=== PATIENT | female | born 1935 | race Caucasian/White ===

== ENCOUNTER 2018-06-12 10:36 | Inpatient (IN) | payer MEDICARE, MEDICAID ==
[~2018-06-12] VITALS: Ht 160 cm; Wt 72.6 kg
[~2018-06-12 10:36] MED LIST: BENA20TA10 PO; DULO60CA44 PO; PREG50CA PO
[2018-06-12 11:37] LABS: BASOPHILS % 0.5 % (0.0-2.0); EOSINOPHILS % 2.8 % (0.0-5.0); HEMATOCRIT. 39.1 % (36.0-48.0); HEMOGLOBIN. 13.5 g/dL (12.0-16.0); LYMPHOCYTES % 24.8 % (20.0-50.0); MEAN CORPUSCULAR HEMOGLOBIN 29.2 pg (28.0-32.0); MEAN CORPUSCULAR VOLUME 84.3 fL (81.0-99.0); MEAN PLATELET VOLUME 7.6 fl (7.4-10.4); MONOCYTES % 7.1 % (2.0-8.0); NEUTROPHILS % 64.8 % (40.0-76.0); PLATELET 379 x1000/uL (130-400); RED BLOOD CELL COUNT 4.64 mill/uL (4.2-5.4); RED CELL DISTRIBUTION WIDTH 13.8 % (11.6-14.6)
[2018-06-12 11:40] LABS: CHLORIDE 96 mEq/L (98-107)
[2018-06-12 11:41] LABS: INR 1.1; PARTIAL THROMBOPLASTIN TIME 34.1 sec (23.4-31.0)
[2018-06-12 11:44] LABS: ETHANOL BLOOD < 10 mg/dL
[2018-06-12] MEDS ORDERED: TRAM50TA3 MT (17:14)
[2018-06-12] MEDS ORDERED: NITR50CA MT (17:14)
[2018-06-12] MEDS ORDERED: APIX5TAB PO (17:14)
[2018-06-12] MEDS ORDERED: LISI40TA4 MT (17:16)
[2018-06-12] MEDS ORDERED: METO25TA6 MT (17:16)
[2018-06-12] MEDS ORDERED: ATOR40TA70 MT (17:17)
[2018-06-12 17:30] VITALS: BP 162/60
[2018-06-12 18:05] VITALS: BP 162/60
[2018-06-12] MEDS: TRAMADOL 50MG TABLET PO PRN (19:01)
[2018-06-12] MEDS: ATORVASTATIN CALCIUM 40MG TABLET PO SCH (20:49)
[2018-06-12] MEDS: APIXABAN 5 MG TABLET PO SCH (20:50)
[2018-06-12] MEDS: ZOLPIDEM TARTRATE 5MG TABLET PO PRN (20:50)
[2018-06-12] MEDS: METOPROLOL TARTRATE 25MG TABLET PO SCH (20:52)
[2018-06-12 22:34] LABS: CREATINE KINASE 33 IU/L (26-192)
[2018-06-12 22:35] LABS: CREATINE KINASE MB FRACTION 1.1 ng/mL (0.5-3.6)
[2018-06-13] VITALS: BP 132/64
[2018-06-13 04:00] VITALS: BP 128/59
[2018-06-13 08:00] VITALS: BP 141/46
[2018-06-13 08:14] LABS: CREATINE KINASE 36 IU/L (26-192)
[2018-06-13 08:15] LABS: CREATINE KINASE MB FRACTION < 1.0 ng/mL (0.5-3.6)
[2018-06-13] MEDS ORDERED: DULOXETINE HCL 60MG DR CAPSULE PO SCH (09:00)
[2018-06-13] MEDS: APIXABAN 5 MG TABLET PO SCH ×2 (09:05→20:55)
[2018-06-13] MEDS: TRAMADOL 50MG TABLET PO PRN (09:13)
[2018-06-13] MEDS: METOPROLOL TARTRATE 25MG TABLET PO SCH ×2 (09:14→20:55)
[2018-06-13] MEDS: LISINOPRIL 40MG TABLET PO SCH (09:14)
[2018-06-13] MEDS: POLYETHYLENE GLYCOL 3350 (17GM) 1 DOSE PACK PO SCH (11:11)
[2018-06-13 12:00] VITALS: BP 129/45
[2018-06-13] MEDS: CALCIUM CARBONATE 500MG TABLET CHEW PO SCH ×3 (13:31→20:58)
[2018-06-13 16:00] VITALS: BP 130/41
[2018-06-13 20:00] VITALS: BP 154/52
[2018-06-13] MEDS: ATORVASTATIN CALCIUM 40MG TABLET PO SCH (20:55)
[2018-06-13] MEDS: ZOLPIDEM TARTRATE 5MG TABLET PO PRN (20:55)
[2018-06-14] VITALS: BP 155/57
[2018-06-14 04:00] VITALS: BP 175/65
[2018-06-14] MEDS: CALCIUM CARBONATE 500MG TABLET CHEW PO SCH ×3 (04:00→08:09)
[2018-06-14 08:00] VITALS: BP 126/51
[2018-06-14] MEDS: LISINOPRIL 40MG TABLET PO SCH (09:27)
[2018-06-14] MEDS: APIXABAN 5 MG TABLET PO SCH (09:27)
[2018-06-14] MEDS: POLYETHYLENE GLYCOL 3350 (17GM) 1 DOSE PACK PO SCH (09:27)
[2018-06-14] MEDS: METOPROLOL TARTRATE 25MG TABLET PO SCH (09:28)
[2018-06-14 12:00] VITALS: BP 151/67
[2018-06-14 15:08] VITALS: BP 129/45
== END 2018-06-14 15:35 | disposition home or self-care (01) | DRG 309 ==
LOC: ER 10:36 → 5WST 13:14 → EDBEDREQ 13:15 → ENRESERV 14:28
PROVIDERS: ADMIT Internal Medicine; ATTEND Internal Medicine
DX: I48.0 Paroxysmal atrial fibrillation (principal); N30.00 Acute cystitis without hematuria; R55 Syncope and collapse; R07.9 Chest pain, unspecified; I10 Essential (primary) hypertension; E78.5 Hyperlipidemia, unspecified; E66.09 Other obesity due to excess calories; H91.90 Unspecified hearing loss, unspecified ear; I25.10 Atherosclerotic heart disease of native coronary artery without angina pectoris; I83.90 Asymptomatic varicose veins of unspecified lower extremity; K21.9 Gastro-esophageal reflux disease without esophagitis; K29.70 Gastritis, unspecified, without bleeding; K59.09 Other constipation; M85.80 Other specified disorders of bone density and structure, unspecified site; Z79.01 Long term (current) use of anticoagulants; Z83.3 Family history of diabetes mellitus; I25.2 Old myocardial infarction; Z68.28 Body mass index [BMI] 28.0-28.9, adult; Z86.73 Personal history of transient ischemic attack (TIA), and cerebral infarction without residual deficits; Z88.0 Allergy status to penicillin; Z88.4 Allergy status to anesthetic agent; Z79.899 Other long term (current) drug therapy
CPT/HCPCS: 36415; 71045; 73630; 82550; 82553; 82962; 83880; 84484; 93005; 99285; C1893

== ENCOUNTER 2019-04-25 16:04 | Inpatient (IN) | payer MEDICARE, MEDICAID ==
[~2019-04-25] VITALS: Ht 157.5 cm; Wt 72.6 kg
[2019-04-25] MEDS ORDERED: SODIUM CHLORIDE 0.9% 500 ML IV ONE (17:52)
[2019-04-25 18:54] LABS: BASOPHILS % 0.5 % (0.0-2.0); EOSINOPHILS % 2.7 % (0.0-5.0); HEMATOCRIT. 33.4 % (36.0-48.0); HEMOGLOBIN. 11.4 g/dL (12.0-16.0); LYMPHOCYTES % 22.4 % (20.0-50.0); MEAN CORPUSCULAR HEMOGLOBIN 28.9 pg (28.0-32.0); MEAN CORPUSCULAR VOLUME 84.8 fL (81.0-99.0); MEAN PLATELET VOLUME 7.5 fl (7.4-10.4); MONOCYTES % 4.6 % (2.0-8.0); NEUTROPHILS % 69.8 % (40.0-76.0); PLATELET 385 x1000/uL (130-400); RED BLOOD CELL COUNT 3.94 mill/uL (4.2-5.4); RED CELL DISTRIBUTION WIDTH 16.6 % (11.6-14.6)
[2019-04-25 18:55] LABS: CHLORIDE 101 mEq/L (98-107)
[2019-04-25 20:37] LABS: CLARITY URINE CLEAR (CLEAR); COLOR URINE YELLOW (YELLOW); KETONES URINE NEGATIVE (NEGATIVE); LEUKOCYTE ESTERASE URINE 2+ (NEGATIVE); NITRITE URINE NEGATIVE (NEGATIVE); OCCULT BLOOD URINE TRACE (NEGATIVE); PROTEIN URINE NEGATIVE (NEGATIVE); SPECIFIC GRAVITY URINE 1.002 (1.005-1.030); UROBILINOGEN URINE 0.2 E.U./dL (0.2-1.0)
[2019-04-25] MEDS ORDERED: FUROSEMIDE 20MG/2ML VIAL IVP ONE (20:45)
[2019-04-26] MEDS ORDERED: NIFEDIPINE XL 60MG TAB PO SCH (06:00)
[2019-04-26 08:15] VITALS: BP 167/88
[2019-04-26 09:46] VITALS: BP 170/88
[2019-04-26] MEDS ORDERED: ATOR10TA MT (13:47)
[2019-04-26] MEDS ORDERED: POTASSIUM CHLORIDE 20MEQ TABLET SR PO SCH (14:30)
[2019-04-26 14:46] VITALS: BP 160/50
[2019-04-26] MEDS ORDERED: ACETAMINOPHEN 500MG TABLET PO NR (15:20)
== END 2019-04-26 16:05 | disposition home or self-care (01) | DRG 605 ==
LOC: ER 16:41 → 6WST 19:04 → EDBEDREQ 19:07 → EDBEDREQTM 19:07 → ENRESERV 04-26 01:27
PROVIDERS: ADMIT Internal Medicine; ATTEND Internal Medicine
DX: S01.81XA Laceration without foreign body of other part of head, initial encounter (principal); R42 Dizziness and giddiness; E78.00 Pure hypercholesterolemia, unspecified; I11.9 Hypertensive heart disease without heart failure; I25.10 Atherosclerotic heart disease of native coronary artery without angina pectoris; M19.90 Unspecified osteoarthritis, unspecified site; W18.39XA Other fall on same level, initial encounter; Z87.81 Personal history of (healed) traumatic fracture; Z88.0 Allergy status to penicillin; Z88.4 Allergy status to anesthetic agent; Y93.89 Activity, other specified; Y92.89 Other specified places as the place of occurrence of the external cause; Y99.8 Other external cause status
CPT/HCPCS: 36415; 71045; 80053; 81003; 83880; 84484; 85025; 93005; 99285; J1940; J7040

== ENCOUNTER 2022-04-29 08:17 | Inpatient (IN) | payer MEDICARE, MEDICAID ==
[~2022-04-29] VITALS: Ht 157.5 cm; Wt 59.0 kg
[~2022-04-29 08:17] MED LIST changes: +APIX2.5T PO; +ATOR10TA MT; -BENA20TA10 PO; +CARV12.545 MT; -DULO60CA44 PO; +LISI40TA13 MT; +NIFE90TA60 PO; -PREG50CA PO; +SPIR25TA6 PO
[2022-04-29 09:30] LABS: BASOPHILS % 0.3 % (0.0-2.0); EOSINOPHILS % 0.6 % (0.0-5.0); HEMATOCRIT. 33.3 % (36.0-48.0); HEMOGLOBIN. 11.4 g/dL (12.0-16.0); LYMPHOCYTES % 8.3 % (20.0-50.0); MEAN CORPUSCULAR HEMOGLOBIN 29.5 pg (28.0-32.0); MEAN PLATELET VOLUME 7.6 fl (7.4-10.4); MONOCYTES % 6.2 % (2.0-8.0); NEUTROPHILS % 84.6 % (40.0-76.0); PLATELET 379 x1000/uL (130-400); RED BLOOD CELL COUNT 3.87 mill/uL (4.2-5.4); RED CELL DISTRIBUTION WIDTH 15.1 % (11.6-14.6)
[2022-04-29 09:43] LABS: CHLORIDE 98 mEq/L (98-107)
[2022-04-29 09:53] LABS: ETHANOL BLOOD < 10 mg/dL
[2022-04-29] MEDS ORDERED: FUROSEMIDE 40MG/4ML VIAL IVP NR (10:30)
[2022-04-29] MEDS ORDERED: GUAIFENESIN 200MG/10ML SUGAR FREE UDC PO PRN (11:30)
[2022-04-29] MEDS ORDERED: IPRATROPIUM/ALBUTEROL 0.5-3(2.5)MG/3ML NEB HHN PRN (11:30)
[2022-04-29] MEDS ORDERED: ACETAMINOPHEN 325MG TABLET PO PRN ×2 (11:30)
[2022-04-29] MEDS ORDERED: ONDANSETRON HCL 4MG/2ML INJ IV PRN (11:30)
[2022-04-29] MEDS ORDERED: DOCUSATE SODIUM 100MG CAPSULE PO PRN (11:30)
[2022-04-29] MEDS ORDERED: CLONIDINE 0.1MG TABLET PO PRN (11:30)
[2022-04-29] MEDS ORDERED: MAGNESIUM/ALUMINUM HYDROXIDE/SIMETHICONE 30ML UDC PO PRN (11:30)
[2022-04-29] MEDS ORDERED: NA PHOS,M-B/NA PHOS,DI-BA ENEMA 118ML PR PRN (11:30)
[2022-04-29] MEDS ORDERED: HYDROCODONE/ACETAMINOPHEN 5/325MG TABLET PO PRN (11:30)
[2022-04-29] MEDS ORDERED: POTASSIUM CHLORIDE INJ 40 MEQ in DEXT 5% WATER 250 ML IV SCH (12:00)
[2022-04-29] MEDS ORDERED: CEFTRIAXONE 1 G PREMIX 50 ML IV NR (12:30)
[2022-04-29] MEDS ORDERED: SODIUM CHLORIDE 0.9% 1,000 ML IV ONE (12:30)
[2022-04-29] MEDS ORDERED: AZITHROMYCIN 500MG/250ML 250 ML IV NR (13:00)
[2022-04-29] MEDS: IPRATROPIUM/ALBUTEROL 0.5-3(2.5)MG/3ML NEB HHN SCH ×3 (13:15→20:48)
[2022-04-29] MEDS: CARVEDILOL 12.5MG TABLET PO SCH ×2 (13:19→21:02)
[2022-04-29] MEDS: LISINOPRIL 20MG TABLET PO SCH (13:20)
[2022-04-29] MEDS: APIXABAN 2.5 MG TABLET PO SCH ×2 (13:20→21:02)
[2022-04-29 15:30] LABS: T4 FREE 1.82 ng/dL (0.76-1.46)
[2022-04-29 15:42] LABS: FERRITIN 236 ng/mL (10-291)
[2022-04-29] MEDS ORDERED: NALOXONE HCL 0.4MG/ML VIAL IV PRN (16:30)
[2022-04-29 16:40] VITALS: BP 175/95
[2022-04-29 16:40] LABS: VITAMIN B12 SERUM > 2000.0 pg/mL (211-911)
[2022-04-29 17:00] VITALS: BP 145/95
[2022-04-29 20:00] VITALS: BP 171/86
[2022-04-29] MEDS: ATORVASTATIN CALCIUM 10MG TABLET PO SCH (21:02)
[2022-04-30] VITALS: BP 170/51
[2022-04-30] MEDS: IPRATROPIUM/ALBUTEROL 0.5-3(2.5)MG/3ML NEB HHN SCH ×3 (00:50→08:38)
[2022-04-30 04:00] VITALS: BP 136/51
[2022-04-30 06:25] LABS: BASOPHILS % 0.6 % (0.0-2.0); EOSINOPHILS % 3.3 % (0.0-5.0); HEMATOCRIT. 30.4 % (36.0-48.0); HEMOGLOBIN. 10.6 g/dL (12.0-16.0); LYMPHOCYTES % 14.9 % (20.0-50.0); MEAN CORPUSCULAR HEMOGLOBIN 29.9 pg (28.0-32.0); MEAN CORPUSCULAR VOLUME 85.8 fL (81.0-99.0); MEAN PLATELET VOLUME 8.1 fl (7.4-10.4); MONOCYTES % 7.8 % (2.0-8.0); NEUTROPHILS % 73.4 % (40.0-76.0); PLATELET 317 x1000/uL (130-400); RED BLOOD CELL COUNT 3.54 mill/uL (4.2-5.4)
[2022-04-30 06:41] LABS: CHLORIDE 98 mEq/L (98-107)
[2022-04-30 06:50] LABS: PHOSPHORUS 2.6 mg/dL (2.5-4.9)
[2022-04-30 08:00] VITALS: BP 151/69
[2022-04-30] MEDS ORDERED: POTASSIUM CHLORIDE INJ 40 MEQ in DEXT 5% WATER 250 ML IV ONE (08:00)
[2022-04-30 09:40] LABS: T4 FREE 1.99 ng/dL (0.76-1.46)
[2022-04-30] MEDS ORDERED: KCL 20MEQ/100ML X 2 FOR TOTAL KCL 40MEQ/200ML IV SCH (10:00)
[2022-04-30] MEDS: APIXABAN 2.5 MG TABLET PO SCH ×2 (10:13→21:42)
[2022-04-30] MEDS: PANTOPRAZOLE 40MG DR TABLET PO SCH (10:13)
[2022-04-30] MEDS: AMLODIPINE 10MG TABLET PO SCH (10:14)
[2022-04-30] MEDS: CARVEDILOL 12.5MG TABLET PO SCH ×2 (10:14→21:41)
[2022-04-30] MEDS: LISINOPRIL 20MG TABLET PO SCH (10:14)
[2022-04-30] MEDS: FOLIC ACID 1MG TABLET PO SCH (11:00)
[2022-04-30 12:00] VITALS: BP 130/99
[2022-04-30] MEDS ORDERED: ALBUTEROL (0.083%) 2.5MG/3ML NEB HHN PRN (12:30)
[2022-04-30] MEDS ORDERED: IPRATROPIUM BROMIDE (0.02%) 0.5MG/2.5ML NEB HHN PRN (12:30)
[2022-04-30] MEDS: IPRATROPIUM BROMIDE (0.02%) 0.5MG/2.5ML NEB HHN SCH ×2 (12:58→20:36)
[2022-04-30] MEDS: ALBUTEROL (0.083%) 2.5MG/3ML NEB HHN SCH ×2 (12:59→20:37)
[2022-04-30] MEDS ORDERED: CEFTRIAXONE 1,000 MG in DEXTROSE 5% WATER 50 ML IV SCH (13:00)
[2022-04-30] MEDS ORDERED: AZITHROMYCIN 500MG in DEXTROSE 5% WATER 250ML IV SCH (13:00)
[2022-04-30 16:00] VITALS: BP 145/89
[2022-04-30] MEDS ORDERED: POTASSIUM CHLORIDE INJ 30 MEQ in DEXT 5% WATER 500 ML IV NR (18:30)
[2022-04-30 19:58] LABS: CLARITY URINE TURBID (CLEAR); COLOR URINE YELLOW (YELLOW); KETONES URINE 1+ (NEGATIVE); LEUKOCYTE ESTERASE URINE 3+ (NEGATIVE); NITRITE URINE NEGATIVE (NEGATIVE); OCCULT BLOOD URINE 2+ (NEGATIVE); PROTEIN URINE 1+ (NEGATIVE); SPECIFIC GRAVITY URINE 1.015 (1.005-1.030)
[2022-04-30 20:00] VITALS: BP 143/65
[2022-04-30 20:17] LABS: *AMPHETAMINES SCREEN URINE NEGATIVE (NEGATIVE); *BARBITURATES SCREEN URINE NEGATIVE (NEGATIVE); *BENZODIAZEPINES SCREEN URINE NEGATIVE (NEGATIVE); *COCAINE SCREEN URINE NEGATIVE (NEGATIVE); CANNABINOID URINE SCREEN NEGATIVE (NEGATIVE); METHADONE URINE SCREEN NEGATIVE (NEGATIVE); OPIATES URINE SCREEN PRESUMTIVE POSITIVE (NEGATIVE); PHENCYCLIDINE URINE SCREEN NEGATIVE (NEGATIVE)
[2022-04-30] MEDS: ATORVASTATIN CALCIUM 10MG TABLET PO SCH (21:41)
[2022-05-01] VITALS: BP 134/84
[2022-05-01 00:33] LABS: CREATINE KINASE MB FRACTION 1.3 ng/mL (0.5-3.6)
[2022-05-01] MEDS: IPRATROPIUM BROMIDE (0.02%) 0.5MG/2.5ML NEB HHN SCH ×4 (01:07→12:00)
[2022-05-01] MEDS: ALBUTEROL (0.083%) 2.5MG/3ML NEB HHN SCH ×4 (01:07→12:00)
[2022-05-01 04:00] VITALS: BP 144/47
[2022-05-01] MEDS: PANTOPRAZOLE 40MG DR TABLET PO SCH (06:56)
[2022-05-01 07:10] LABS: BASOPHILS % 0.6 % (0.0-2.0); EOSINOPHILS % 5.2 % (0.0-5.0); HEMATOCRIT. 29.5 % (36.0-48.0); HEMOGLOBIN. 10.2 g/dL (12.0-16.0); LYMPHOCYTES % 21.9 % (20.0-50.0); MEAN CORPUSCULAR HEMOGLOBIN 29.9 pg (28.0-32.0); MEAN CORPUSCULAR VOLUME 86.2 fL (81.0-99.0); MEAN PLATELET VOLUME 7.6 fl (7.4-10.4); MONOCYTES % 10.6 % (2.0-8.0); NEUTROPHILS % 61.7 % (40.0-76.0); PLATELET 348 x1000/uL (130-400); RED BLOOD CELL COUNT 3.42 mill/uL (4.2-5.4); RED CELL DISTRIBUTION WIDTH 14.5 % (11.6-14.6)
[2022-05-01 07:34] LABS: CHLORIDE 97 mEq/L (98-107); CREATINE KINASE 47 IU/L (26-192); CREATINE KINASE MB FRACTION 1.2 ng/mL (0.5-3.6)
[2022-05-01 08:00] VITALS: BP 160/53
[2022-05-01] MEDS: FOLIC ACID 1MG TABLET PO SCH (08:50)
[2022-05-01] MEDS: AMLODIPINE 10MG TABLET PO SCH (08:50)
[2022-05-01] MEDS: CARVEDILOL 12.5MG TABLET PO SCH (08:50)
[2022-05-01] MEDS: APIXABAN 2.5 MG TABLET PO SCH (08:50)
[2022-05-01] MEDS: LISINOPRIL 20MG TABLET PO SCH (08:50)
[2022-05-01 10:03] VITALS: BP 160/53
[2022-05-02] MEDS ORDERED: FAMOTIDINE 20MG TABLET PO SCH (07:40)
== END 2022-05-01 10:30 | disposition home or self-care (01) | DRG 640 ==
LOC: ER 08:17 → 7WST 11:01 → EDBEDREQTM 11:34 → EDBEDREQ 11:34
PROVIDERS: ADMIT Internal Medicine; ATTEND Internal Medicine
DX: E86.0 Dehydration (principal); G92.8 Other toxic encephalopathy; E46 Unspecified protein-calorie malnutrition; E78.2 Mixed hyperlipidemia; D64.9 Anemia, unspecified; E87.6 Hypokalemia; Z20.822 Contact with and (suspected) exposure to COVID-19; F03.90 Unspecified dementia, unspecified severity, without behavioral disturbance, psychotic disturbance, mood disturbance, and anxiety; I25.10 Atherosclerotic heart disease of native coronary artery without angina pectoris; I48.0 Paroxysmal atrial fibrillation; R29.6 Repeated falls; I50.9 Heart failure, unspecified; I11.0 Hypertensive heart disease with heart failure; E78.5 Hyperlipidemia, unspecified; K57.30 Diverticulosis of large intestine without perforation or abscess without bleeding; Z68.23 Body mass index [BMI] 23.0-23.9, adult; Z88.0 Allergy status to penicillin; Z88.4 Allergy status to anesthetic agent; I25.2 Old myocardial infarction; Z79.01 Long term (current) use of anticoagulants; Z79.899 Other long term (current) drug therapy; Z86.73 Personal history of transient ischemic attack (TIA), and cerebral infarction without residual deficits; Z87.440 Personal history of urinary (tract) infections; Z95.810 Presence of automatic (implantable) cardiac defibrillator
CPT/HCPCS: 36415; 71045; 74176; 76536; 80048; 80053; 80061; 80305; 80320; 81003; 82550; 82553; 82607; 82728; 82746; 83036; 83540; 83550; 83605; 83735; 83880; 84100; 84145; 84439; 84443; 84484; 85025; 85379; 86738; 86850; 86900; 87426; 87449; 87804; 93005; 93306; 93970; 94640; 97162; 97166; 99285; C9803; J0456; J0696; J1940; J3480; J7060; G0480

== ENCOUNTER 2025-02-15 15:18 | Emergency (ER) | payer MEDICARE, MEDICAID ==
[~2025-02-15] VITALS: Ht 157.5 cm; Wt 70.0 kg
[~2025-02-15 15:18] MED LIST changes: +ACET-2708 PO; +AMLO2.5T45 MT; +APIX2.5T MT; -APIX2.5T PO; -ATOR10TA MT; +ATOR40TA70 PO; -CARV12.545 MT; +CARV25TA47 MT; +CEFP100T8 MT; -LISI40TA13 MT; +LISI40TA21 MT; -NIFE90TA60 PO; +PANT40TA51 PO; -SPIR25TA6 PO; +[UNRECOGNIZED DRUG - CODE] SUBCUT
[2025-02-15 15:24] VITALS: O2SAT 98
[2025-02-15 16:58] VITALS: O2SAT 99
[2025-02-15] MEDS: ACETAMINOPHEN 500MG TABLET PO ONE (17:46)
[2025-02-15 19:18] VITALS: BP 126/49; PULSE 70; RESP 16; TEMP 36.6
== END 2025-02-15 19:45 | disposition home or self-care (01) ==
LOC: ER 15:18
DX: G89.29 Other chronic pain (principal); M25.551 Pain in right hip; M25.552 Pain in left hip; E78.00 Pure hypercholesterolemia, unspecified; F03.90 Unspecified dementia, unspecified severity, without behavioral disturbance, psychotic disturbance, mood disturbance, and anxiety; I10 Essential (primary) hypertension; Z55.6 Problems related to health literacy; Z74.01 Bed confinement status; Z79.01 Long term (current) use of anticoagulants; Z79.899 Other long term (current) drug therapy; Z86.73 Personal history of transient ischemic attack (TIA), and cerebral infarction without residual deficits; Z88.0 Allergy status to penicillin; Z88.4 Allergy status to anesthetic agent; Z95.0 Presence of cardiac pacemaker
CPT/HCPCS: 72192; 99284